=== PATIENT | male | born 1995 | race Caucasian/White ===

== ENCOUNTER 2024-08-29 09:40 | Emergency (ER) | payer MEDICAID ==
[~2024-08-29] VITALS: Ht 167.6 cm; Wt 59.1 kg
[2024-08-29 09:54] VITALS: TEMP 98.1
[2024-08-29] MEDS: CIPROFLOXACIN HCL 250 MG TABLET PO ONE (10:38)
[2024-08-29] MEDS: PERTUSS(ACELL),DIPH,TET/PF 0.5 ML SYRINGE [ADULT] IM. ONE (10:39)
[2024-08-29] MEDS ORDERED: [UNRECOGNIZED DRUG - CODE] PO (10:57)
[2024-08-29] MEDS ORDERED: IBUP-1492 PO (10:57)
[2024-08-29 11:09] VITALS: BP 121/72; PULSE 67; RESP 16; O2SAT 98
== END 2024-08-29 11:11 | disposition home or self-care (01) ==
LOC: EMS 09:52
DX: S91.331A Puncture wound without foreign body, right foot, initial encounter (principal); W45.0XXA Nail entering through skin, initial encounter; Y93.89 Activity, other specified; Y92.89 Other specified places as the place of occurrence of the external cause; Y99.8 Other external cause status
CPT/HCPCS: 90471; 90715; 99283